=== PATIENT | male | born 2000 | race Caucasian/White ===

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

== ENCOUNTER 2021-04-05 06:10 | Day surgery (SDC) | payer OTHER ==
[~2021-04-05] VITALS: Ht 181 cm; Wt 103.3 kg
[~2021-04-05 06:10] MED LIST changes: +ACET500 PO; +CLIN300 PO
--- NOTE | 2021-04-05 07:07 | NUR ---
Ambulatory in Day Surgery History, Chart, Medications and Allergies reviewed before start of procedure.Patient confirms NPO status and agrees with scheduled surgery.
--- NOTE | 2021-04-05 08:03 | NUR ---
04/05/21 0803 Sheryl Velarde NO ANTIBIOTICS ORDERED PREOP PER .
--- NOTE | 2021-04-05 09:42 | NUR ---
Patient up to Ambulate independently. Gait steady. Discharge instructions reviewed with patient. Patient verbalizes understanding. Copy given to patient to take home.Lungs clear T/O to Auscultation. Patient States Post-Procedure ride home has been arranged. Discharged via wheelchair to private car for ride home.
== END 2021-04-05 09:46 | disposition home or self-care (01) ==
LOC: ORSCMMR 06:10 → ORD 07:30 → ORSCMMR 07:30
PROVIDERS: Surgery
PROC: 0D9P3ZZ Drainage of Rectum, Percutaneous Approach (ICD-10-PCS; principal; 2021-04-05 07:30)
DX: K60.3 Anal fistula (principal)
CPT/HCPCS: A9270; J1100; J2250; J2405; J2704; J3010; J7120